=== PATIENT | male | born 1985 | race Caucasian/White ===

== ENCOUNTER 2022-10-19 13:04 | Emergency (ER) | payer OTHER, SELFPAY ==
[2022-10-19 13:25] VITALS: BP 145/85; PULSE 85; RESP 16; TEMP 36.9; O2SAT 99; BMI 35.6
--- NOTE | 2022-10-19 13:31 | DI.RAD.S_ITS ---
PROCEDURE: XR ELBOW RT MIN 3V INDICATIONS: concerns of septic joint. Fall four weeks ago TECHNIQUE: 3 views of the elbow were acquired. COMPARISON: None. FINDINGS: Bones: No fractures or dislocations. No suspicious bony lesions. Soft tissues: No elbow joint effusion. No suspicious soft tissue calcifications. Mild soft tissue swelling over the dorsal proximal ulna. No radiodense foreign body or soft tissue gas. IMPRESSION: 1. No evidence of foreign body or soft tissue gas in the area of dorsal swelling. Dictated by: Ailyn Brasher M.D. on 10/19/2022 at 13:46 Approved by: Ailyn Brasher M.D. on 10/19/2022 at 13:47
--- NOTE | 2022-10-19 15:27 | ED_ITS ---
HPI - Extremity Injury (Upper) <JUDSON Orozco - Last Filed: 10/19/22 15:46> General Chief Complaint: Extremity Injury, Upper Stated Complaint: sent from [facility] rt elbow pain Time Seen by Provider: 10/19/22 15:19 Mode of arrival: Family Vehicle History of Present Illness HPI narrative: This is a 37-year-old male presents to the emergency department with concern for infection to his right elbow. He states that 4 weeks ago he was in room when he tripped on the ground and caused an abrasion to his right elbow. He still has a scab which has been healing but states that it got swollen yesterday, became red, tender, and he is having difficulty finding comfort even with a lidocaine patch on since yesterday. He denies any range of motion abnormalities but states that it is very swollen and red and tender so all movement hurts. He states that his tetanus is up-to-date but he can not remember when it was and there is no record of it in our system. His primary care provider is Dr. Jones. He denies history of skin infections, denies anticoagulants, denies fracture or hardware into this arm in the past. States he is right-handed. Denies allergies. Related Data Previous Rx's Medication Instructions Recorded lisdexamfetamine 30 mg capsule 30 mg PO DAILY #30 caps 09/12/22 (Vyvanse) cephalexin 500 mg capsule 500 mg PO QID 7 days #28 caps 10/19/22 hydrocodone 5 mg-acetaminophen 325 1 tab PO TID PRN pain #14 tabs 10/19/22 mg tablet ibuprofen 600 mg tablet 600 mg PO Q6-8H PRN fever or pain 10/19/22 #30 tabs mupirocin 2 % topical ointment 1 applic topical DAILY #15 grams 10/19/22 sulfamethoxazole 800 1 tab PO BID 7 days #14 tabs 10/19/22 mg-trimethoprim 160 mg tablet (Bactrim DS) Allergies Allergy/AdvReac Type Severity Reaction Status Date / Time No Known Drug Allergies Allergy Verified 10/19/22 13:28 Review of Systems <JUDSON Orozco - Last Filed: 10/19/22 15:46> Review of Systems ROS Unobtainable: All systems reviewed & are unremarkable except as noted in HPI and below Patient History <JUDSON Orozco - Last Filed: 10/19/22 15:46> Medical History ADHD (~1997) Hyperlipidemia Surgical History Anesthesia S/P foot surgery, right (~1995) Family History Grandfather Brain aneurysm Grandmother Diabetes mellitus Grandfather Hypertension Social History Smoking Status: Never smoker Smoking Status: Never smoker Substance Use Type: does not use Exam <JUDSON Orozco - Last Filed: 10/19/22 15:46> Narrative Exam Narrative: Reviewed vitals signs and nursing notes. General: cooperative, in no acute distress, well groomed, afebrile HEENT: symmetrical facial expressions, moist mucous membranes, neck is supple MSK: moves all extremities, neurovascularly intact, no weakness, normal tone Skin: brisk capillary refill, rash to the right elbow surrounding a scab, patient able to flex and extend his elbow with full range of motion, neurovascul manuel intact to the fingertips, tenderness, edema, erythema at the elbow is concerning for cellulitis, no fluctuance or area of palpable fluid collection. Neuro: normal speech and cognition, A&O x3, ambulatory, clear speech Initial Vital Signs Initial Vital Signs: Vital Signs Temperature 98.4 F 10/19/22 13:25 Pulse Rate 85 10/19/22 13:25 Respiratory Rate 16 10/19/22 13:25 Blood Pressure 145/85 H 10/19/22 13:25 Pulse Oximetry 99 10/19/22 13:25 Oxygen Delivery Method Room Air 10/19/22 13:25 <Liza Dempsey DO - Last Filed: 10/20/22 19:04> Initial Vital Signs Initial Vital Signs: Vital Signs Temperature 98.4 F 10/19/22 13:25 Pulse Rate 85 10/19/22 13:25 Respiratory Rate 16 10/19/22 13:25 Blood Pressure 145/85 H 10/19/22 13:25 Pulse Oximetry 99 10/19/22 13:25 Oxygen Delivery Method Room Air 10/19/22 13:25 Course <JUDSON Orozco - Last Filed: 10/19/22 15:46> Orders Ordered: Discontinued Medications Hydrocodone Bitart/Acetaminophen (Hydrocodone/Acet 5/325 Tablet) 1 tab PO NOW ONE Stop: 10/19/22 15:25 Last Admin: 10/19/22 15:41 Dose: Not Given Documented By: DEBI Ceftriaxone Sodium (Ceftriaxone 2,000 Mg Vial) 1,000 mg IM NOW ONE Stop: 10/19/22 15:25 Last Admin: 10/19/22 15:44 Dose: 1,000 mg Documented By: DEBI Diphtheria/Tetanus/Acell Pertussis (Tet,Diph,Pertuss(Acell),Vac/Pf 0.5 Ml Syringe) 0.5 ml IM .ONCE ONE Stop: 10/19/22 15:25 Last Admin: 10/19/22 15:42 Dose: 0.5 ml Documented By: DEBI Ketorolac Tromethamine (Ketorolac 30 Mg/Ml Vial) 30 mg IM NOW ONE Stop: 10/19/22 15:25 Last Admin: 10/19/22 15:43 Dose: 30 mg Documented By: DEBI Lidocaine HCl (Lidocaine 1% (Pf) 5 Ml) 4.2 ml INJ NOW ONE Stop: 10/19/22 15:25 Last Admin: 10/19/22 15:44 Dose: 4.2 ml Documented By: DEBI Trimethoprim/Sulfamethoxazole (Trimeth/Sulfa 160/800 (Ds) Tablet) 1 tab PO NOW ONE Stop: 10/19/22 15:25 Last Admin: 10/19/22 15:42 Dose: 1 tab Documented By: DEBI Vital Signs Vital signs: Vital Signs - 8 hr 10/19/22 13:25 Temperature 98.4 F Pulse Rate 85 Respiratory Rate 16 Blood Pressure 145/85 H Pulse Oximetry 99 Oxygen Delivery Method Room Air <Liza Dempsey DO - Last Filed: 10/20/22 19:04> Orders Ordered: Discontinued Medications Hydrocodone Bitart/Acetaminophen (Hydrocodone/Acet 5/325 Tablet) 1 tab PO NOW ONE Stop: 10/19/22 15:25 Last Admin: 10/19/22 15:41 Dose: Not Given Documented By: DEBI Ceftriaxone Sodium (Ceftriaxone 2,000 Mg Vial) 1,000 mg IM NOW ONE Stop: 10/19/22 15:25 Last Admin: 10/19/22 15:44 Dose: 1,000 mg Documented By: DEBI Diphtheria/Tetanus/Acell Pertussis (Tet,Diph,Pertuss(Acell),Vac/Pf 0.5 Ml Syringe) 0.5 ml IM .ONCE ONE Stop: 10/19/22 15:25 Last Admin: 10/19/22 15:42 Dose: 0.5 ml Documented By: DEBI Ketorolac Tromethamine (Ketorolac 30 Mg/Ml Vial) 30 mg IM NOW ONE Stop: 10/19/22 15:25 Last Admin: 10/19/22 15:43 Dose: 30 mg Documented By: DEBI Lidocaine HCl (Lidocaine 1% (Pf) 5 Ml) 4.2 ml INJ NOW ONE Stop: 10/19/22 15:25 Last Admin: 10/19/22 15:44 Dose: 4.2 ml Documented By: DEBI Trimethoprim/Sulfamethoxazole (Trimeth/Sulfa 160/800 (Ds) Tablet) 1 tab PO NOW ONE Stop: 10/19/22 15:25 Last Admin: 10/19/22 15:42 Dose: 1 tab Documented By: DEBI Vital Signs Vital signs: Vital Signs - 8 hr 10/19/22 13:25 Temperature 98.4 F Pulse Rate 85 Respiratory Rate 16 Blood Pressure 145/85 H Pulse Oximetry 99 Oxygen Delivery Method Room Air MDM - Extremity Injury (Upper) <Chapis Singleton, [facility] - Last Filed: 10/19/22 15:46> Imaging Data Extremity x-ray #1: Radiologist's Impression: PROCEDURE:? XR ELBOW RT MIN 3V ? INDICATIONS:? concerns of septic joint. Fall four weeks ago ? TECHNIQUE:? 3 views of the elbow were acquired.? ? COMPARISON:? None. ? FINDINGS:? ? Bones:? No fractures or dislocations.? No suspicious bony lesions.? ? Soft tissues:? No elbow joint effusion.? No suspicious soft tissue ca lcifications.? Mild soft tissue swelling over the dorsal proximal ulna.? No radiodense foreign body or soft tissue gas. ? ? IMPRESSION:? ? 1. No evidence of foreign body or soft tissue gas in the area of dorsal swelling.? ? ? Dictated by: Ailyn Brasher M.D. on 10/19/2022 at 13:46 ? ? Approved by: Ailyn Brasher M.D. on 10/19/2022 at 13:47 ? [facility] Narrative Medical decision making narrative: Chief Complaint: Redness and swelling to the right elbow 4 weeks after injury Independent historian: Patient Differential diagnoses include but are not limited to: Cellulitis, foreign body, abscess, septic joint, bursitis I have independently reviewed the patient's vital signs and nursing notes as well as prior records if available. Pertinent Imaging reviewed: X-ray of the right elbow is negative for radiopaque foreign body or soft tissue gas, no joint effusion or acute fracture. Course of care: On exam, this is most likely a soft tissue infection as evidenced by the erythema, edema and tenderness local to the scab. No purulence or fluctuance on palpation, no drainage, recommend cool compresses, he has a lidocaine patch on it currently, states it is only thing finding him relief of pain. He was given Bactrim plus cephalexin and mupirocin ointment to use topically and encouraged warm compresses over the scab, follow-up in 2 days for worsening, there is no evidence of joint effusions this is less likely to be septic joint. He was given ceftriaxone 1 g IM, given Bactrim here in the emergency department and a prescription of both to follow up with including hydrocodone for pain. Social considerations that may affect disposition: none Questions are addressed and there is agreement with the plan and for follow-up. Patient is appropriate for outpatient management. MIPS: This encounter doesn't have any diagnosis' associated with MIPS criteria. Discharge Plan Departure Patient Disposition: Home Clinical Impression: Cellulitis Qualifiers: Site of cellulitis: extremity Site of cellulitis of extremity: upper extremity Laterality: right Qualified Code(s): L03.113 - Cellulitis of right upper limb Instructions: Cellulitis Activity Restrictions/Additional Instructions: *You have been diagnosed with cellulitis, a skin infection without evidence of air underneath the skin so this is less likely to be a necrotizing infection which is good news. Could not find history of your tetanus vaccination so I ordered G1, the recommendation is to update every 5 years but it will last at least 10. Please take these antibiotics for the next 7 days, please come back if you have worsening of this. Please follow-up with Dr. Jones or return to the emergency department for another evaluation in 2 days. If you develop fever and chills, are unable to move your elbow, this prompts urgent evaluation. Please follow-up at [facility] if worsening concerns about joint infection. Use warm compresses to see if pus comes to the surface and can drain out the scab. Please remove the scab so that it can drain if needed. Ice will be the most comfortable, is keep it elevated and I hope you start feeling better soon. *What to do: *Please continue to take your regular medications as directed. [x ] New medication prescriptions sent to your pharmacy: [ [facility]] [ ] New medication written as a paper prescription [ ] No new medications given *Please follow up with your primary care provider in 2-3 days, call for an appointment. Let them know you were seen in the Emergency Department and that we asked that you be seen for follow-up. We will electronically transmit a record of today's note if your PCP is in our system *If you do not have a primary care provider please contact [phone] to establish care with one of [facility] primary care providers. *Return to Emergency Department if you should have any new, worsening, or concerning symptoms, such as [fever greater than 101F, chills, worsening pain, persistent vomiting or other bothersome symptoms]. Prescriptions: New cephalexin 500 mg capsule 500 mg PO QID 7 Days Qty: 28 0RF sulfamethoxazole-trimethoprim [Bactrim DS] 800-160 mg tablet 1 tab PO BID 7 Days Qty: 14 0RF mupirocin 2 % ointment 1 applic topical DAILY Qty: 15 0RF ibuprofen 600 mg tablet 600 mg PO Q6-8H PRN (Reason: fever or pain) Qty: 30 0RF hydrocodone-acetaminophen 5-325 mg tablet 1 tab PO TID PRN (Reason: pain) Qty: 14 0RF No Action Vyvanse 30 mg capsule 30 mg PO DAILY Qty: 30 0RF Referrals: [facility] [Provider Group] Awais Jones MD [Primary Care Provider] - Stand Alone Forms: Patient Portal/API <Liza Dempsey DO - Last Filed: 10/20/22 19:04> [facility] Att[facility]: I was immediately available in the department for consultation.
[2022-10-19] MEDS: TET,DIPH,PERTUSS(ACELL),VAC/PF 0.5 ML SYRINGE IM (15:42)
[2022-10-19] MEDS: TRIMETH/SULFA 160/800 (DS) TABLET 1 TAB PO (15:42)
[2022-10-19] MEDS: KETOROLAC 30 MG/ML VIAL IM (15:43)
[2022-10-19] MEDS: cefTRIAXone 2,000 MG VIAL 1000 MG IM (15:44)
[2022-10-19] MEDS: LIDOCAINE 1% (PF) 5 ML 4.2 ML INJ (15:44)
[2022-10-19 16:01] VITALS: BP 147/86; PULSE 84; RESP 18; O2SAT 99
== END 2022-10-19 16:08 | disposition home or self-care (01) ==
PROVIDERS: Emergency Provider Nurse Practitioner Critical Care Medicine; PCP Family Medicine
DX: L03.113 Cellulitis of right upper limb (principal); Z23 Encounter for immunization
CPT/HCPCS: 73080; 90471; 96372; 99283; 99284; 90715; J0696; J1885

== ENCOUNTER → 2023-03-19 09:29 | Outpatient (CLI) | payer OTHER, SELFPAY ==
[2023-03-19 10:45] LABS: Cholesterol 238 mg/dL (140-199); HDL Cholesterol 39 mg/dL (40-60); LDL Cholesterol Calculated 185 mg/dL (<100); Triglycerides 72 mg/dL (35-150)
== END ==
PROVIDERS: PCP Family Medicine; Referring Provider Family Medicine; Visit Provider Family Medicine
DX: E78.5 Hyperlipidemia, unspecified (principal)
CPT/HCPCS: 36415; 80061